=== PATIENT | female | born 1970 | race Native Hawaiian/Other Pacific Islander ===

== ENCOUNTER 2017-08-05 14:40 | Emergency (ER) | payer OTHER ==
[~2017-08-05] VITALS: Ht 162.6 cm; Wt 100.7 kg
[~2017-08-05 14:40] MED LIST: CETI10TA PO; GABA300C2 PO; ZANTAC 75 PO
[2017-08-05 16:02] VITALS: BP 91/87; TEMP 97.7
== END 2017-08-05 16:05 | disposition home or self-care (01) ==
LOC: ED 14:40
DX: S93.431A Sprain of tibiofibular ligament of right ankle, initial encounter (principal); W19.XXXA Unspecified fall, initial encounter; Y92.009 Unspecified place in unspecified non-institutional (private) residence as the place of occurrence of the external cause
CPT/HCPCS: 99282

== ENCOUNTER 2019-03-16 13:39 | Emergency (ER) | payer OTHER ==
[~2019-03-16] VITALS: Ht 162.6 cm; Wt 81.2 kg
[2019-03-16 14:37] LABS: PLATELET COUNT 243 K/uL (152-353)
[2019-03-16 14:51] LABS: POTASSIUM 3.3 mmol/L (3.6-5.2); SODIUM 139 mmol/L (136-145)
[2019-03-16 15:45] VITALS: BP 151/90; TEMP 98
== END 2019-03-16 15:45 | disposition home or self-care (01) ==
LOC: ED 13:39
PROVIDERS: Emergency Medicine
DX: J01.90 Acute sinusitis, unspecified (principal); R07.89 Other chest pain; F17.210 Nicotine dependence, cigarettes, uncomplicated
CPT/HCPCS: 80053; 80307; 81000; 84484; 85027; 87502; 87651; 93005; 99283

== ENCOUNTER 2019-06-20 15:14 | Emergency (ER) | payer OTHER ==
[~2019-06-20] VITALS: Ht 162.6 cm; Wt 90.7 kg
[2019-06-20 15:50] VITALS: BP 121/66; TEMP 98.7
== END 2019-06-20 15:57 | disposition home or self-care (01) ==
LOC: ED 15:14
DX: L08.9 Local infection of the skin and subcutaneous tissue, unspecified (principal); S80.811A Abrasion, right lower leg, initial encounter; L03.115 Cellulitis of right lower limb; W22.03XA Walked into furniture, initial encounter
CPT/HCPCS: 96372; 99282; J0696

== ENCOUNTER 2020-09-13 18:33 | Emergency (ER) | payer OTHER ==
[~2020-09-13] VITALS: Ht 162.6 cm; Wt 97.5 kg
[2020-09-13 19:20] LABS: PLATELET COUNT 211 K/uL (152-353)
[2020-09-13 19:35] LABS: POTASSIUM 4.1 mmol/L (3.6-5.2)
[2020-09-13 20:15] VITALS: BP 138/69; TEMP 98.4
== END 2020-09-13 20:15 | disposition home or self-care (01) ==
LOC: ED 18:33
PROVIDERS: Family Medicine
DX: S16.1XXA Strain of muscle, fascia and tendon at neck level, initial encounter (principal); S00.83XA Contusion of other part of head, initial encounter; S39.012A Strain of muscle, fascia and tendon of lower back, initial encounter; V89.2XXA Person injured in unspecified motor-vehicle accident, traffic, initial encounter; Y92.488 Other paved roadways as the place of occurrence of the external cause
CPT/HCPCS: 36415; 80053; 85027; 96374; 99284

== ENCOUNTER 2021-11-21 14:37 | Emergency (ER) | payer OTHER ==
[~2021-11-21] VITALS: Ht 162.6 cm; Wt 97.5 kg
[2021-11-21 14:45] VITALS: TEMP 97.44
[2021-11-21 17:00] VITALS: BP 118/78
== END 2021-11-21 18:15 | disposition home or self-care (01) ==
LOC: ED 14:37
DX: M54.59 Other low back pain (principal); F41.8 Other specified anxiety disorders; R30.0 Dysuria; T74.11XA Adult physical abuse, confirmed, initial encounter; S30.1XXA Contusion of abdominal wall, initial encounter; Y04.2XXA Assault by strike against or bumped into by another person, initial encounter; Y07.03 Male partner, perpetrator of maltreatment and neglect; Y92.89 Other specified places as the place of occurrence of the external cause
CPT/HCPCS: 81002; 99283